=== PATIENT | female | born 1945 | race Caucasian/White ===

== ENCOUNTER 2017-10-14 19:19 | Outpatient (CLI) | payer OTHER ==
--- NOTE | 2017-10-15 06:43 | Diagnostic Imaging Report ---
YANETH OCASIO [facility] [id number] [facility] [address] [address] Report Submission Date: Oct 14, 2017 9:46:17 PM [employer]ION CENTRE MANAGER Patient Study Name: ABIMBOLA BOOTH Date: Oct 14, 2017 9:24:36 PM RECEPTION CENTRE MANAGER Modality Type: CR Gender: F Description: CHEST : 49 Institution: [facility] Physician: YANETH OCASIO 2 views the chest Clinical history: Cough Findings: The heart size and pulmonary vasculature within normal limits. No pleural effusion, alveolar consolidation or pneumothorax identified. Surgical clips are noted. Impression: No acute disease in the chest Electronically signed on Oct 14, 2017 9:46:17 PM RECEPTION CENTRE MANAGER by: Ken SLOAN
== END 2017-10-14 19:20 ==
LOC: RAD 19:19
PROVIDERS: ATTEND Emergency Medicine
DX: R05 Cough (principal)
CPT/HCPCS: 71046

== ENCOUNTER 2018-03-07 13:31 | Outpatient (CLI) | payer OTHER | END 2018-03-07 13:32 | LOC: RAD 13:31 | PROVIDERS: ATTEND Internal Medicine Endocrinology, Diabetes & Metabolism | DX: M85.80 Other specified disorders of bone density and structure, unspecified site (principal) | CPT/HCPCS: 77080 ==

== ENCOUNTER 2018-04-07 09:48 | Day surgery (SDC) | payer OTHER ==
[2018-04-07] MEDS ORDERED: 0.9 % SODIUM CHLORIDE 500 ML IV ONE (12:00)
[2018-04-07] MEDS ORDERED: LACTATED RINGERS 1,000 ML IV.SOLN IV ONE (12:00)
[2018-04-07] MEDS ORDERED: PROPOFOL 200 MG/20 ML VIAL IV ONE (12:00)
--- NOTE | 2018-04-08 09:59 | GI Report ---
REFERRING PHYSICIAN: Dr. Randy Monteiro UNIFORM ATTENDANT: Osvaldo Yee MD PROCEDURE MEDICATION: Propofol as per anesthesia. INDICATIONS: This is a 72-year-old woman who is referred for a colonoscopy. She had an incomplete colonoscopy she said at the [facility] 15 years ago. They could not get around a corner and said it was very uncomfortable for her. She is referred by [facility]. There was a polyp removed. She denies change in bowel habits or blood in the stool. PROCEDURE PERFORMED: Colonoscopy and polypectomy. PROCEDURE: An Olympus video colonoscope was advanced into the rectum. She does have moderate to severe diverticular disease of the sigmoid colon and a very atonic redundant colon. It took some maneuvering to finally reach the cecum. In the cecum and ascending colon, there were 2 polyps removed. One was 3 mm and was about a 4 mm sessile flat polyp removed with electrocautery. Transverse colon with redundancy. No addition intraluminal lesions noted. The descending colon, again, some diverticula and redundancy. Sigmoid with a lot of diverticula and a lot of redundancy. At the rectosigmoid junction at about 12 cm, patient had a 3 mm polyp removed with a cold snare. Retroflexion of the rectum was normal. Patient tolerated the procedure well. FINDINGS: 1. Three polyps removed. Two in the proximal ascending colon to cecum. One at the rectosigmoid junction. 2. Moderate to severe diverticular disease in the sigmoid and descending colon. RECOMMENDATIONS: 1. A high-fiber diet. 2. Pending the pathology of the polyps, consider re-looking at her colon within 5 years. cc: Dr. Randy SLOAN
== END 2018-04-07 09:50 ==
LOC: OPSURG 09:48
PROVIDERS: ATTEND Internal Medicine Gastroenterology
DX: K63.5 Polyp of colon (principal); D12.2 Benign neoplasm of ascending colon; D12.0 Benign neoplasm of cecum; D12.7 Benign neoplasm of rectosigmoid junction
CPT/HCPCS: 88305; J2704; J7060; J7120; 45385; S1016

== ENCOUNTER 2018-09-07 10:17 | Outpatient (CLI) | payer OTHER | END 2018-09-07 10:19 | LOC: LAB 10:17 | PROVIDERS: ATTEND Nurse Practitioner Family | DX: Z53.8 Procedure and treatment not carried out for other reasons (principal) ==